=== PATIENT | male | born 1950 | race Caucasian/White ===

== ENCOUNTER 2019-08-31 18:38 | Outpatient (CLI) | payer MEDICARE, OTHER | END 2019-08-31 18:39 | disposition critical access hospital (66) | LOC: EMS 18:38 | PROVIDERS: ATTEND Surgery | DX: S01.01XA Laceration without foreign body of scalp, initial encounter (principal); W11.XXXA Fall on and from ladder, initial encounter; W22.8XXA Striking against or struck by other objects, initial encounter; Y92.009 Unspecified place in unspecified non-institutional (private) residence as the place of occurrence of the external cause | CPT/HCPCS: A0425; A0427 ==

== ENCOUNTER 2019-08-31 19:01 | Emergency (ER) | payer MEDICARE, OTHER ==
--- NOTE | 2019-08-31 19:35 | ED Physician Documentation ---
History of Present Illness - Stated complaint Stated Complaint: FALL FROM LADDER/ HEAD LAC - Chief complaint Chief Complaint: Trauma Hd/Nk - History obtained from History obtained from: Patient, EMS - History of Present Illness Timing: Today Pain level max: 7 Pain level now: 7 - Additonal information Additional information: 69-year-old male presents to the emergency department after being on a stepstool tonight, lost his balance fell backwards and struck the back of his head on a metal fireplace. Has the laceration to the posterior scalp. Also complaining of right elbow pain. He was placed in a cervical collar and placed on a backboard by EMS. Unknown last tetanus shot. Nothing makes it better or worse. Unknown loss of consciousness. Review of Systems Ten Systems: 10 systems reviewed and negative Constitutional: denies: Fever, Chills Ears: denies: Ear pain Nose: denies: Rhinorrhea / runny nose, Congestion Throat: denies: Sore throat Cardiac: denies: Chest pain / pressure Respiratory: denies: Dyspnea, Cough, Wheezing GI: reports: Nausea (Nausea initially, none now). denies: Abdominal Pain, Vomiting, Diarrhea Skin: denies: Rash Musculoskeletal: reports: Neck pain, Back pain (Chronic back pain from spinal stenosis, no change) Neurologic: denies: Focal weakness, Numbness, Confused PD PAST MEDICAL HISTORY - Past Medical History Past Medical History: No - Past Surgical History Past Surgical History: No - Allergies Allergies/Adverse Reactions: Allergies Allergy/AdvReac Type Severity Reaction Status Date / Time No Known Drug Allergies Allergy Verified 08/31/19 20:01 - Social History Does the pt smoke?: No Smoking Status: Never smoker Does the pt drink ETOH?: No Does the pt have substance abuse?: No - Immunizations Immunizations are current?: Yes PD ED PE NORMAL - Vitals Vital signs reviewed: Yes - General General: Alert and oriented X 3, No acute distress, Well developed/nourished - HEENT HEENT: PERRL, Other (3 cm curved laceration to the occiput. No palpable skull fractures. Mild bleeding) - Neck Neck: Supple, no meningeal sign, Other (Mild midline tenderness to palpation. No step-off or deformity.) - Cardiac Cardiac: RRR, Strong equal pulses - Respiratory Respiratory: No respiratory distress, Clear bilaterally - Abdomen Abdomen: Soft, Non tender, Non distended - Back Back: No spinal TTP (No midline tenderness to palpation. No step-off or deformity.) - Derm Derm: Warm and dry - Extremities Extremities: No deformity, Other (Tender to palpation over the right elbow, full range of motion though with some pain. Neurovascular intact. 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, No motor deficit, No sensory deficit, Normal speech Eye Opening: Spontaneous Motor: Obeys Commands Verbal: Oriented GCS Score: 15 - Psych Psych: Normal mood, Normal affect Results - Vitals Vitals: Vital Signs - 24 hr 08/31/19 08/31/19 08/31/19 19:15 19:18 19:48 Temperature 36.9 C Heart Rate 75 75 70 Respiratory 16 16 16 Rate Blood Pressure 165/76 H 162/78 H 145/78 H O2 Saturation 99 99 99 08/31/19 08/31/19 20:18 21:07 Temperature 36.8 C Heart Rate 72 65 Respiratory 16 16 Rate Blood Pressure 157/65 H 155/69 H O2 Saturation 99 99 Oxygen O2 Source Room air - Rads (name of study) Head CT Radiology: Prelim report reviewed, EMP read contemporaneously, See rad report (No acute intracranial abnormality) cervical spine CT Radiology: Prelim report reviewed, EMP read contemporaneously, See rad report (No acute abnormality) R elbow xray Radiology: Prelim report reviewed, EMP read contemporaneously, See rad report (No acute abnormality) Procedures - Laceration (location) occiput Length in cm: 3 Wound type: Curved, Into subcut fat, Clean Neurovascular status: Sensory intact, Motor intact, Vascular intact Wound Preparation: Irrigated copiously NS, Wound explored, To the base Skin layer closure: [place] Other: Patient tolerated well, No complications, Neurovascular intact, Dressing applied, Tetanus booster given (tdap) Complexity: Simple PD MEDICAL DECISION MAKING - ED course Complexity details: reviewed results, re-evaluated patient, considered differential, d/w patient ED course: Laceration repaired. Tolerated well. No acute findings on head CT, cervical spine CT or right elbow x-ray. Ambulating well. No back pain. Wound care instructions given at bedside. Patient counseled regarding signs and symptoms for which I believe and urgent re-evaluation would be necessary. Patient with good understanding of and agreement to plan and is comfortable going home at this time This document was made in part using voice recognition software. While efforts are made to proofread this document, sound alike and grammatical errors may occur. Departure - Departure Disposition: 01 Home, Self Care Clinical Impression: Scalp laceration Qualifiers: Encounter type: initial encounter Qualified Code(s): S01.01XA - Laceration without foreign body of scalp, initial encounter Fall Qualifiers: Encounter type: initial encounter Qualified Code(s): W19.XXXA - Unspecified fall, initial encounter Head injury Qualifiers: Encounter type: initial encounter Qualified Code(s): S09.90XA - Unspecified injury of head, initial encounter Condition: Good Instructions: ED Head Injury Closed, ED Laceration Scalp Stitch Or Stap Follow-Up: Dilip Cutler MD [Primary Care Provider] - Within 1 week Comments: You can use Motrin or Tylenol as needed for pain at home. Return if you worsen. Your CAT scan and x-rays are normal tonight. The tess should be removed in 10 to 14 days with your doctor. Return if you notice redness, swelling or drainage from the area. Discharge Date/Time: 08/31/19 21:08
--- NOTE | 2019-08-31 19:45 | CT Report ---
Reason: fall, head injury Procedure Date: 08/31/2019 Accession Number: [id number] / [id number] Procedure: CT - HEAD WO CPT Code: Final Report FULL RESULT: EXAM: CT HEAD EXAM DATE: 08/31/2019 07:25 PM. CLINICAL HISTORY: Fall, pain, head injury. COMPARISON: None. TECHNIQUE: Multiaxial CT images were obtained from the foramen magnum to the vertex. Reformats: Sagittal and coronal. IV contrast: None. In accordance with CT protocol optimization, one or more of the following dose reduction techniques were utilized for this exam: automated exposure control, adjustment of mA and/or KV based on patient size, or use of iterative reconstructive technique. FINDINGS: Parenchyma: Evidence of mild probable age-related diffuse parenchymal volume loss. No acute hemorrhage, mass-effect, or midline shift identified. Spence-white differentiation appears maintained. Extraaxial Spaces: No acute extra-axial collection. Ventricles: Appropriate in size and configuration. Sinuses and Orbits: Probable polyp/retention cyst at the inferior maxillary sinus bilaterally and small amount of scattered mucus in the ethmoids. The remainder of the visualized paranasal sinuses and mastoid air cells appear well aerated. Bones: No depressed skull fracture. Other: Mild posterior scalp soft tissue swelling. IMPRESSION: No acute intracranial abnormality identified. [facility]
--- NOTE | 2019-08-31 19:46 | XRAY Report ---
Reason: fall, R elbow injury Procedure Date: 08/31/2019 Accession Number: [id number] / [id number] Procedure: XR - Elbow 3 View RT CPT Code: Final Report FULL RESULT: EXAM: RIGHT ELBOW RADIOGRAPHY EXAM DATE: 08/31/2019 07:31 PM. CLINICAL HISTORY: Fall, R elbow injury. COMPARISON: None. TECHNIQUE: 3 views. FINDINGS: Bones: Olecranon spur and tiny well-corticated ossicle off of the medial humeral epicondyle. No acute fractures. Joints: No dislocations. Suboptimal lateral views, but no obvious effusions. Soft Tissues: Normal. No soft tissue swelling. IMPRESSION: No fracture or dislocation. [facility]
--- NOTE | 2019-08-31 19:48 | CT Report ---
Reason: fall, neck pain Procedure Date: 08/31/2019 Accession Number: [id number] / [id number] Procedure: CT - CERVICAL SPINE WO CPT Code: Final Report FULL RESULT: EXAM: CT CERVICAL SPINE WITHOUT CONTRAST DATE: 08/31/2019 07:25 PM. HISTORY: Fall, neck pain. COMPARISONS: None. TECHNIQUE: Thin-section axial images were acquired of the cervical spine without contrast. Post-processing: Coronal and sagittal reformats. Other: None. In accordance with CT protocol optimization, one or more of the following dose reduction techniques were utilized for this exam: automated exposure control, adjustment of mA and/or KV based on patient size, or use of iterative reconstructive technique. FINDINGS: Alignment: No scoliosis or spondylolisthesis. Bones: No fracture or bone lesion. Interspace Levels/Facets: Moderate degenerative disk disease at C4-C5, C5-C6, and C6-C7 associated with mild spinal canal stenosis and mild to moderate bilateral neural foraminal stenoses at these levels. Mild right-sided foraminal stenosis at C3-C4. Musculature: No significant fatty atrophy. Other: No prevertebral soft tissue swelling. The lung apices are clear. IMPRESSION: 1. No acute fractures or dislocations. 2. Multilevel degenerative changes as detailed in the findings section of the report. [facility]
[2019-08-31] MEDS: TETANUS/DIPHTHERIA/PERTUSSIS 0.5 ML SYRINGE IM ONE (20:03)
[2019-08-31] MEDS: BACITRACIN ZINC OINT 1 PACKET TOP STA (20:34)
[2019-08-31] MEDS: IBUPROFEN 800 MG TABLET PO STA (20:34)
[2019-08-31 21:08] VITALS: BP 155/69
== END 2019-08-31 21:08 | disposition home or self-care (01) ==
LOC: EDUNIT# → ED 19:01
DX: S01.01XA Laceration without foreign body of scalp, initial encounter (principal); S09.90XA Unspecified injury of head, initial encounter; W11.XXXA Fall on and from ladder, initial encounter; W22.03XA Walked into furniture, initial encounter
CPT/HCPCS: 12002; 70450; 72125; 73080; 90471; 90715; 99284; A9270

== ENCOUNTER 2023-05-12 07:12 | Outpatient (CLI) | payer MEDICARE, OTHER ==
--- NOTE | 2023-05-12 09:59 | MRI Report ---
PROCEDURE: LUMBAR SPINE WO INDICATIONS: LOW BACK PAIN TECHNIQUE: Noncontrast sagittal T1 spin echo and T2 fast echo, sagittal STIR, axial T1 and T2 fast spin echo thr ough the lumbar spine. In cases with scoliosis, additional coronal T2 fast spin echo may be performe d. COMPARISON: 10/04/2012. FINDINGS: Image quality: Excellent. Alignment and Curvature: Trace anterolisthesis of L4 on L5. Bone Marrow: Marrow is of normal overall signal. No acute vertebral body compression fractures. Spinal Cord: Conus medullaris terminates at the L1 level. Visualized cord demonstrates normal signa l and size. Paraspinous Soft Tissues: No paravertebral masses. Multiple incidental prominent renal cysts. T12-L1: Facet hypertrophy. No canal stenosis or foraminal stenosis. L1-L2: Progressive findings. Previously, no axial imaging was performed. Disc bulge. Facet and lig ament hypertrophy. Mild canal stenosis. No significant foraminal stenosis. L2-L3: Definite interval progression. Moderate diffuse disc bulge. Facet and ligament hypertrophy . Moderate to severe canal stenosis. Right foraminal disc bulge. Mild to moderate right foraminal aleksandra rowing. L3-L4: Interval progression. Disc bulge. Prominent bilateral facet hypertrophy. Moderate canal sten osis. Moderate bilateral foraminal narrowing with mild flattening deformity on the exiting bilateral L3 nerve roots. L4-L5: Development of trace anterolisthesis of L4 on L5. Disc bulge. Exuberant bilateral facet hype rtrophy. Severe canal stenosis. Mild to moderate bilateral foraminal stenosis. L5-S1: Bilateral facet hypertrophy. No canal stenosis or significant foraminal stenosis. IMPRESSION: 1. Underlying facet arthropathy at all imaged levels, most impressive at L3-L4 and L4-L5. 2. Progressive findings. 3. Canal stenosis is mild at L1-L2, moderate to severe at L2-L3, moderate at L3-L4, and severe at L4- L5. 4. Multilevel foraminal narrowing as described above. Findings include moderate bilateral foraminal n arrowing at L3-L4. Reviewed by: Eh Chapa MD on 05/12/2023 9:57 AM PST Approved by: Eh Chapa MD on 05/12/2023 9:57 AM PST Station ID: [id number]
== END 2023-05-12 07:13 | disposition home or self-care (01) ==
LOC: DI 07:12
PROVIDERS: ATTEND Nurse Practitioner Family
DX: M47.816 Spondylosis without myelopathy or radiculopathy, lumbar region (principal); M48.061 Spinal stenosis, lumbar region without neurogenic claudication

== ENCOUNTER 2023-07-25 07:29 | Outpatient (CLI) | payer MEDICARE, OTHER ==
--- NOTE | 2023-07-27 10:28 | MRI Report ---
PROCEDURE: Pelvis WO INDICATIONS: R HIP PAIN TECHNIQUE: Noncontrast coronal T1 spin echo , STIR, and T2 HASTE with and without fat saturation; axial T1 spin echo, STIR, and T2 HASTE; sagittal T1 spin echo and T2 HASTE through the bony pelvis. COMPARISON: None. FINDINGS: Image quality: Excellent. Bones and joints: Bone marrow of the pelvic ring and proximal femurs show normal signal throughout. No intraosseous lesions or fractures. Multilevel degenerative disc disease and facet hypertrophy ar e seen in the included lumbar spine. Tendons: The gluteus medius and minimus tendons appear intact, without associated muscle atrophy. The iliopsoas tendon appears intact, without adjacent bursal fluid collections. The origin of the h amstring tendon is intact at the ischial tuberosity. The tendons for the direct and indirect heads o f the rectus femoris muscle appear intact. Hip joints: Larger field of view images demonstrate no avascular necrosis of the femoral heads. Ther e is diffuse full-thickness cartilage loss throughout the superior hips bilaterally with subchondral cystic changes and subchondral edema as well as marginal osteophyte formation. Small bilateral hip ef fusions. Labrum is not well evaluated on large [id number] images. Soft tissues: Visualized muscles demonstrate normal bulk and internal signal. The proximal sciatic neurovascular bundle appears normal adjacent to the hamstring tendons. No acute abnormality is seen i n the included pelvis. IMPRESSION: 1.Full-thickness cartilage loss is seen in the superior hips bilaterally with subchondral cystic simpson ges and edema, marginal osteophyte formation, and small joint effusions. 2.No acute trabecular bone injury. No significant ligament or tendon tearing is seen. 3.Multilevel degenerative changes in the included lumbar spine. Reviewed by: Wenceslao Paredes MD on 07/27/2023 10:26 AM PDT Approved by: Wenceslao Paredes MD on 07/27/2023 10:26 AM PDT Station ID: [id number]
== END 2023-07-25 07:30 | disposition home or self-care (01) ==
LOC: DI 07:29
PROVIDERS: ATTEND Nurse Practitioner Family
DX: M16.0 Bilateral primary osteoarthritis of hip (principal); M25.451 Effusion, right hip; M25.452 Effusion, left hip; M47.816 Spondylosis without myelopathy or radiculopathy, lumbar region; M51.36 Other intervertebral disc degeneration, lumbar region

== ENCOUNTER 2023-09-25 08:00 | Outpatient (CLI) | payer MEDICARE, OTHER | END 2023-09-25 23:59 | disposition home or self-care (01) | LOC: LAB.N 08:00 | PROVIDERS: ATTEND Physician Assistant | DX: J06.9 Acute upper respiratory infection, unspecified (principal) ==